=== PATIENT | male | born 1970 | race Caucasian/White ===

== ENCOUNTER 2019-08-21 09:49 | Emergency (ER) | payer SELFPAY ==
[~2019-08-21] VITALS: Ht 185.4 cm; Wt 154.5 kg
[2019-08-21 10:24] VITALS: BP 158/105
--- NOTE | 2019-08-21 10:44 | NUR ---
PT HERE WITH C/O LEFT KNEE PAIN, DENIES TRAUMA BUT STATES RECENTLY INCREASED ACTIVITY.
--- NOTE | 2019-08-21 10:57 | NUR ---
PT TO XRAY.
[2019-08-21] MEDS ORDERED: PLEASE ENTER ALLERGIES MC SCH (11:00)
[2019-08-21] MEDS ORDERED: IBUPROFEN 800 MG TABLET PO ONE (11:00)
[2019-08-21] MEDS ORDERED: IBUPROFEN 200 MG TABLET ONE (11:13)
--- NOTE | 2019-08-21 11:14 | NUR ---
PT MEDICATED PER ORDERS, ICE PACK PLACED ON LEFT KNEE AND PT GIVEN CRACKERS PER PA REQUEST.
--- NOTE | 2019-08-21 11:20 | NUR ---
ALL RESULTS BACK AT THIS TIME, CHART UP FOR RECHECK.
--- NOTE | 2019-08-21 11:46 | NUR ---
Patient/Caregiver given discharge instructions and they have confirmed that they understand the instructions. Patient ambulatory with steady gait. CANE GIVEN TO PT.
== END 2019-08-21 12:06 | disposition home or self-care (01) ==
LOC: ED 11:45
DX: M25.562 Pain in left knee (principal); R26.2 Difficulty in walking, not elsewhere classified
CPT/HCPCS: 99283